=== PATIENT | female | born 1975 | race American Indian/Alaskan Native ===

== ENCOUNTER 2018-06-03 14:38 | Emergency (ER) | payer BC, MEDICAID, OTHER ==
--- NOTE | 2018-06-03 15:43 | C.PDOC ---
History Of Present Illness 42 year old female presents to ED for evaluation of small bruise to medial aspect of left thigh. Pt has history of HTN, did not take her BP meds today. Denies leg pain, or change in sensation. Time Seen by Provider: 06/03/18 15:38 Chief Complaint (Nursing): Lower Extremity Problem/Injury History Per: Patient History/Exam Limitations: no limitations Past Medical History Reviewed: Historical Data, Nursing Documentation, Vital Signs Vital Signs: Last Vital Signs Temp 98 F 06/03/18 16:03 Pulse 87 06/03/18 16:03 Resp 18 06/03/18 16:03 BP 168/96 H 06/03/18 16:03 Pulse Ox 98 06/03/18 16:03 - Medical History PMH: HTN, Hyperlipidemia Family History: States: Unknown Family Hx - Social History Hx Tobacco Use: No Hx Alcohol Use: Yes Hx Substance Use: No - Immunization History Hx Tetanus Toxoid Vaccination: No Hx Influenza Vaccination: No Hx Pneumococcal Vaccination: No Review Of Systems Except As Marked, All Systems Reviewed And Found Negative. Constitutional: Negative for: Fever, Chills Musculoskeletal: Negative for: Leg Pain Skin: Positive for: Bruising Neurological: Negative for: Weakness, Numbness Physical Exam - Physical Exam Appears: Non-toxic, No Acute Distress Skin: Warm, Dry, Ecchymosis (3 x 3 area of bruising to medial aspect of left thigh) Head: Atraumatic, Normacephalic Eye(s): bilateral: Normal Inspection Cardiovascular: Rhythm Regular Respiratory: Normal Breath Sounds, No Rales, No Rhonchi, No Wheezing Extremity: Normal ROM, No Tenderness, No Pedal Edema, No Calf Tenderness, No Deformity, No Swelling Neurological/Psych: Oriented x3, Normal Speech, Normal Motor, Normal Sensation ED Course And Treatment O2 Sat by Pulse Oximetry: 100 Medical Decision Making Medical Decision Making: small painless bruise L medial thich 3x3 cm, no leg edema BP elevated b/c forgot to take AM BP no h/o anticoag meds LOW risk DVT anxiety about health Disposition Doctor Will See Patient In The: Office Counseled Patient/Family Regarding: Studies Performed, Diagnosis - Disposition Referrals: Kati Madrigal MD [Staff Provider] - Disposition: HOME/ ROUTINE Disposition Time: 15:42 Condition: GOOD Additional Instructions: normal bruising no acute issues please take your BP meds IN THE MORNING PRESCRIBED Instructions: Contusion (DC) Forms: [employer] ([place]ian) - Clinical Impression Clinical Impression: Superficial bruising of lower leg - Scribe Statement The provider has reviewed the documentation as recorded by the Scribe KP All medical record entries made by the Scribe were at my direction and personally dictated by me. I have reviewed the chart and agree that the record accurately reflects my personal performance of the history, physical exam, medical decision making, and the department course for this patient. I have also personally directed, reviewed, and agree with the discharge instructions and disposition.
[2018-06-03 16:04] VITALS: BP 168/96; PULSE 87; RESP 18; TEMP 98
[2018-06-03 16:37] VITALS: O2SAT 100
== END 2018-06-03 16:04 | disposition home or self-care (01) ==
LOC: C.ER 14:38
DX: S80.12XA Contusion of left lower leg, initial encounter (principal); X58.XXXA Exposure to other specified factors, initial encounter; Y92.9 Unspecified place or not applicable; I10 Essential (primary) hypertension